=== PATIENT | female | born 1960 | race Caucasian/White ===

== ENCOUNTER → 2017-04-04 | Outpatient (CLI) | payer BC ==
--- NOTE | 2017-04-05 11:03 | ECHOF ---
Referral Reason:R06.09 Dyspnea MEASUREMENTS -------- HEIGHT: 162.6 cm WEIGHT: 68.9 kg BP: 138/77 RVIDd: 2.3 cm (< 3.3) IVSd: 0.8 cm (0.6 - 1.1) LVIDd: 4.2 cm (3.9 - 5.3) LVPWd: 0.9 cm (0.6 - 1.1) IVSs: 1.4 cm LVIDs: 2.6 cm LVPWs: 1.4 cm LAESV Index (A-L): 23.10 ml/m Ao Diam: 2.9 cm (2.0 - 3.7) AV Cusp: 1.8 cm (1.5 - 2.6) LA Diam: 3.7 cm (2.7 - 3.8) MV EXCURSION: 18.894 mm (> 18.000) MV EF SLOPE: 122 mm/s (70 - 150) EPSS: 1.3 cm MV E Moshe: 0.93 m/s MV DecT: 194 ms MV A Moshe: 1.14 m/s MV E/A Ratio: 0.82 RAP: 5.00 mmHg RVSP: 34.01 mmHg FINDINGS -------- Sinus rhythm. This was a technically good study. The left ventricular size is normal. Left ventricular wall thickness is normal. Overall left ventricular systolic function is normal with, an EF between 60 - 65 %. The right ventricle is normal in size and function. Normal LA size by volume 22+/-6 ml/m2. RA appears enlarged. The aortic valve is trileaflet, and appears structurally normal. No aortic stenosis or regurgitation. The mitral valve leaflets are mildly thickened. Mild mitral annular calcification present. There is trace to mild mitral regurgitation. Mild tricuspid regurgitation present. There is borderline pulmonary artery hypertension. The right ventricular systolic pressure, as measured by Doppler, is 34.01mmHg. The pulmonic valve was not well visualized. The aortic root size is normal. Normal inferior vena cava with normal inspiratory collapse consistent with estimated right atrial pressure of 5 mmHg. The pericardium is normal. There is no pericardial effusion. CONCLUSIONS -------- 1. Sinus rhythm. 2. There is trace to mild mitral regurgitation. 3. Mild tricuspid regurgitation present. 4. There is borderline pulmonary artery hypertension. 5. The right ventricular systolic pressure, as measured by Doppler, is 34.01mmHg. 6. The pulmonic valve was not well visualized. 7. The aortic root size is normal. 8. This was a technically good study. 9. The left ventricular size is normal. 10. Overall left ventricular systolic function is normal with, an EF between 60 - 65 %. 11. Normal LA size by volume 22+/-6 ml/m2. 12. RA appears enlarged. 13. The aortic valve is trileaflet, and appears structurally normal. No aortic stenosis or regurgitation. 14. The mitral valve leaflets are mildly thickened. 15. Mild mitral annular calcification present. [employer] WORKER: Tejinder Alberts RDCS
== END | disposition home or self-care (01) ==
LOC: RADECHMAIN 14:53
PROVIDERS: ATTEND Family Medicine
DX: I08.1 Rheumatic disorders of both mitral and tricuspid valves (principal); I27.2 Other secondary pulmonary hypertension
CPT/HCPCS: 93306

== ENCOUNTER → 2018-08-28 | Outpatient (CLI) | payer BC ==
--- NOTE | 2018-08-29 07:19 | US ---
EXAMINATION TYPE: US thyroid st tissue head/neck DATE OF EXAM: 08/28/2018 COMPARISON: US 03/24/2015 CLINICAL HISTORY: E04.1 Thyroid Nodule. Patient complains of throat pain. GLAND SIZE: Right Lobe: 2.8 x 1.3 x 0.7 cm Overall Parenchyma: homogenous Left Lobe: 3.6 x 1.1 x 1.0 cm Overall Parenchyma: homogeneous Isthmus Thickness: 0.2 cm NODULES RIGHT: # of nodules measured on right: 0 LEFT: # of nodules measured on left: 0 ISTHMUS: # of nodules measured in the isthmus: 0 Bilateral neck scanned, no evidence of lymphadenopathy. Tiny cystic areas seen on prior not appreciated on today's exam. Several small nodes seen left latera l neck, largest measures 0.8 cm. IMPRESSION: The previously seen subcentimeter cystic lesions are not appreciated on today's examination. The thyr oid gland is noted be homogeneous and small in size. No suspicious lesion.
== END ==
LOC: RADUSWWP 16:56
PROVIDERS: ATTEND Family Medicine
DX: E04.1 Nontoxic single thyroid nodule (principal)
CPT/HCPCS: 76536